=== PATIENT | male | born 1980 | race African-American/Black ===

== ENCOUNTER 2021-03-01 18:21 | Emergency (ER) | payer SELFPAY ==
[~2021-03-01] VITALS: Ht 175.3 cm; Wt 116.0 kg
[2021-03-01 18:27] VITALS: BP 170/110
[2021-03-01] MEDS ORDERED: CEPH500C2 MT (19:36)
[2021-03-01] MEDS ORDERED: SULF1TAB48 MT (19:36)
[2021-03-01] MEDS ORDERED: LIDOCAINE HCL 1% 20ML VIAL (Pyxis) INJ INFIL ONE (19:45)
[2021-03-01] MEDS ORDERED: IBUP-2029 MT (20:22)
== END 2021-03-01 20:46 | disposition home or self-care (01) ==
LOC: ER 18:21
DX: L02.811 Cutaneous abscess of head [any part, except face] (principal); I10 Essential (primary) hypertension
CPT/HCPCS: 10060; 99282; J3490

== ENCOUNTER 2022-02-15 15:34 | Emergency (ER) | payer MEDICAID ==
[~2022-02-15] VITALS: Ht 188 cm; Wt 104.0 kg
[~2022-02-15 15:34] MED LIST: CEPH500C2 MT; IBUP-2029 MT; SULF1TAB48 MT
[2022-02-15 15:52] VITALS: BP 188/109
[2022-02-15] MEDS ORDERED: IBUP-2028 MT (18:26)
[2022-02-15] MEDS ORDERED: TOPUD PO (18:26)
== END 2022-02-15 19:02 | disposition home or self-care (01) ==
LOC: ER 15:34
DX: S09.8XXA Other specified injuries of head, initial encounter (principal); S99.822A Other specified injuries of left foot, initial encounter; S99.812A Other specified injuries of left ankle, initial encounter; I10 Essential (primary) hypertension; W20.8XXA Other cause of strike by thrown, projected or falling object, initial encounter; Y93.01 Activity, walking, marching and hiking; Y92.69 Other specified industrial and construction area as the place of occurrence of the external cause; M79.662 Pain in left lower leg
CPT/HCPCS: 73590; 73610; 73630; 99284

== ENCOUNTER 2025-08-25 11:42 | Emergency (ER) | payer MEDICAID ==
[~2025-08-25] VITALS: Ht 188 cm; Wt 105.0 kg
[~2025-08-25 11:42] MED LIST changes: +IBUP-1455 MT; +IBUP-2028 MT; -IBUP-2029 MT; +TOPUD PO
[2025-08-25 11:57] VITALS: O2SAT 100
[2025-08-25] MEDS ORDERED: ACET-2708 MT (14:02)
[2025-08-25] MEDS ORDERED: LIDO-53 TP (14:02)
[2025-08-25] MEDS: KETOROLAC 30MG/ML VIAL IM ONE (14:15)
[2025-08-25 15:25] VITALS: BP 155/117; PULSE 78; RESP 18; TEMP 37; O2SAT 100
== END 2025-08-25 15:26 | disposition home or self-care (01) ==
LOC: ER 11:42
DX: M25.551 Pain in right hip (principal); I10 Essential (primary) hypertension; Z90.49 Acquired absence of other specified parts of digestive tract
CPT/HCPCS: 99283; 73502; 96372; J1885